=== PATIENT | female | born 1980 | race Caucasian/White ===

== ENCOUNTER → 2019-05-28 | Outpatient (CLI) | payer BC ==
--- NOTE | 2019-05-28 10:02 | XR ---
EXAMINATION TYPE: XR chest 2V DATE OF EXAM: 05/28/2019 COMPARISON: NONE HISTORY: Presurgical study. TECHNIQUE: Frontal and lateral views of the chest are obtained. FINDINGS: There is no focal air space opacity, pleural effusion, or pneumothorax seen. The cardiac silhouette size is within normal limits. The osseous structures are intact. IMPRESSION: No acute cardiopulmonary process.
[2019-05-28 10:50] LABS: Calcium 10.2 mg/dL (8.4-10.2); Potassium 4.3 mmol/L (3.5-5.1)
[2019-05-28 10:54] LABS: Appearance,Urine Clear (Clear); Basophils % (A) 1 %; Bilirubin,Urine Negative (Negative); Blood,Urine Negative (Negative); Color,Urine Light Yellow; Eosinophils # (A) 0.2 k/uL (0-0.7); Eosinophils % (A) 3 %; Glucose,Urine (UA) Negative (Negative); HCT 38.4 % (34.0-46.0); HGB 12.7 gm/dL (11.4-16.0); Ketones,Urine Negative (Negative); Leukocyte Esterase,Urine Large (Negative); Lymphocytes # (A) 1.4 k/uL (1.0-4.8); Lymphocytes % (A) 25 %; MCH 28.8 pg (25.0-35.0); MCV 87.2 fL (80.0-100.0); Mean Platelet Volume 7.2; Monocytes # (A) 0.2 k/uL (0-1.0); Monocytes % (A) 4 %; Mucus,Urine Rare /hpf; Neutrophils # (A) 3.6 k/uL (1.3-7.7); Neutrophils % (A) 65 %; Nitrite,Urine Negative (Negative); Platelet Count 353 k/uL (150-450); Protein,Urine Negative (Negative); RBC 4.41 m/uL (3.80-5.40); RBC,Urine 3 /hpf (0-5); RDW 15.3 % (11.5-15.5); Squamous Epithelial Cell,Urine 1 /hpf (0-4); Urobilinogen,Urine <2.0 mg/dL (<2.0); WBC 5.5 k/uL (3.8-10.6); WBC,Urine 13 /hpf (0-5)
[2019-05-28 11:11] LABS: Partial Thromboplastin Time 28.4 sec (22.0-30.0); Prothrombin Time 10.3 sec (9.0-12.0)
== END | disposition home or self-care (01) ==
LOC: LABWHC1 09:01
PROVIDERS: ATTEND Orthopaedic Surgery Orthopaedic Surgery of the Spine
DX: Z01.818 Encounter for other preprocedural examination (principal); Z01.812 Encounter for preprocedural laboratory examination; M51.26 Other intervertebral disc displacement, lumbar region
CPT/HCPCS: 36415; 71046; 80048; 81001; 85025; 85610; 85730

== ENCOUNTER 2019-06-06 07:02 | Day surgery (SDC) | payer BC ==
[2019-05-30 11:39] VITALS: BMI 38.2
[~2019-06-06 07:02] MED LIST: BACITRACIN 50,000 UNIT, POLYMYXIN B 500,000 UNIT in SODIUM CHLORIDE 0.9% IRRIGATIO 1,00... IRRIGATION ONE; DEXAMETHASONE SOD PHOSPHATE 10 MG/ML 1 ML VIAL IV ONE; HYDROmorphone 0.5 MG/0.5 ML SYRINGE IVP PRN; LACTATED RINGERS 1,000 ML IV SCH; ONDANSETRON 4 MG/2 ML VIAL IVP ONE; ONDANSETRON 4 MG/2 ML VIAL IVP PRN
[2019-06-06] MEDS ORDERED: LIDOCAINE 1% 20 ML VIAL (10MG/ML) FOR IV START INTRADERMA ONE (07:32)
[2019-06-06] MEDS ORDERED: SCOPOLAMINE 1.5MG/72HR PATCH TRANSDERM ONE (07:38)
[2019-06-06] MEDS ORDERED: GLYCOPYRROLATE 0.2 MG/ML 2 ML VIAL ONE (07:47)
[2019-06-06] MEDS ORDERED: ePHEDrine SULFATE/0.9% NACL/PF 50 MG/5 ML SYRINGE IV ONE (07:47)
[2019-06-06] MEDS ORDERED: SUCCINYLCHOLINE CHLORIDE 100 MG/5 ML SYR IV ONE (07:47)
[2019-06-06] MEDS ORDERED: PROPOFOL 10 MG/ML 20 ML VIAL IV ONE (07:47)
[2019-06-06] MEDS ORDERED: fentaNYL (PF) 50 MCG/ML 2 ML AMP ONE (07:47)
[2019-06-06] MEDS ORDERED: MIDAZOLAM 2 MG/2 ML VIAL ONE (07:47)
[2019-06-06] MEDS ORDERED: KETAMINE 10 MG/ML 20 ML VIAL ONE (07:47)
[2019-06-06] MEDS ORDERED: NEOSTIGMINE 1 MG/ML 10 ML VIAL ONE (07:47)
[2019-06-06] MEDS ORDERED: LIDOCAINE 1% INJ 10MG/ML (20 ML MDV) ONE (07:47)
[2019-06-06] MEDS ORDERED: ROCURONIUM BROMIDE 10 MG/ML 10 ML VIAL IV ONE (07:47)
[2019-06-06] MEDS ORDERED: THROMBIN (BOVINE) 5,000 UNIT VIAL TOPICAL ONE (07:54)
[2019-06-06] MEDS ORDERED: GELATIN SPONGE,ABSORB (SMALL) 1 EACH SPONGE TOPICAL ONE (07:54)
[2019-06-06] MEDS ORDERED: GELATIN SPONGE,ABSORB (LARGE) 1 EACH SPONGE TOPICAL ONE (07:54)
[2019-06-06] MEDS ORDERED: LIDOCAINE 0.5%-EPI 1:200,000 50 ML VIAL SQ ONE (08:22)
[2019-06-06] MEDS ORDERED: methylPREDNISolone ACETATE 80 MG/ML 1 ML VIAL INJ ONE ×2 (08:33→08:57)
--- NOTE | 2019-06-06 09:02 | FL ---
Fluoroscopy INDICATION: Pain FINDINGS: Fluoroscopy time: 3 seconds. Images obtained: 1. IMPRESSIONS: 1. Documentation of fluoroscopy.
[2019-06-06] MEDS ORDERED: HYDROmorphone 0.5 MG/0.5 ML SYRINGE IVP PRN (09:22)
[2019-06-06] MEDS ORDERED: IBUPROFEN 600 MG TAB PO PRN (09:22)
[2019-06-06] MEDS ORDERED: KETOROLAC 30 MG/ML 1 ML VIAL IVP PRN (09:22)
[2019-06-06] MEDS ORDERED: HYDROcodone/APAP 5-325MG 1 EACH TAB PO PRN (09:22)
[2019-06-06] MEDS ORDERED: MAGNESIUM HYDROXIDE 2,400 MG/10 ML CUP PO PRN (09:22)
[2019-06-06] MEDS ORDERED: BENZOCAINE/MENTHOL LOZENG 1 EACH LOZENGE MUCOUS MEM PRN (09:22)
[2019-06-06] MEDS ORDERED: ONDANSETRON 4 MG/2 ML VIAL IVP PRN (09:22)
--- NOTE | 2019-06-06 09:27 | P.OP ---
Date of Procedure: 06/06/19 Preoperative Diagnosis: Herniated nucleus pulposis L4 5, right lower extremity radiculopathy Postoperative Diagnosis: Herniated nucleus pulposis L4 5, right lower extremity radiculopathy Anesthesia: GETA Pathology: none sent Condition: stable Disposition: PACU Description of Procedure: BRIEF OPERATIVE NOTE Preoperative Diagnosis:Herniated nucleus pulposis L4 5, right lower extremity radiculopathy Postoperative Diagnosis:Herniated nucleus pulposis L4 5, right lower extremity radiculopathy Procedure: Laminectomy and decompression L4 5 Discectomy for decompression L4 5 Use of fluoroscopic guidance Surgeon: Dr. [employer] Technician: Ever COLLINS who is present throughout the entire the case persistence during positioning, dissection, exposure, visualization, and all crucial elements of the case as well as closure. Anesthesia: General anesthesia Estimated blood loss: approximately 50 mL Complications: None apparent Components implanted: none Disposition: To recovery room in good stable condition. OPERATIVE INDICATIONS The patient has been having issues in their lower back and lower extremities. she is having significant pain with burning tingling and numbness down her right lower extremity over an L5 distribution. She is having some weakness with dorsiflexion. She is found have a disc herniation with extruded fragment at L4 5 with which correlated with her back and lower extremity symptoms. The patient has been through conservative treatment. she is not having any benefit despite aggressive conservative care. We discussed various treatment options including surgery, and the patient wishes to proceed with surgery We discussed the risk, patient's alternatives and benefits of surgery including but not limited to, risk of bleeding risk of infection, risk of need for further surgery, risk of decreased, loss of motion, loss of function, nerve damage, paralysis, heart attack, blindness and . OPERATIVE SUMMARY After discussing all the risks, patient alternatives and benefits at length, the patient elected to proceed with surgical intervention, signed informed consent, and presented for their procedure. The patient was seen and examined in the preoperative holding area and the surgical site was marked. The patient was given antibiotics and brought to the operating room. The patient was sedated and intubated by anesthesia in standard fashion. The patient was positioned on to the operating room table in a prone position on the appropriate frame which was well-padded and well molded. We were careful to pad any bony prominences and pressure points. We were careful to maintain the patient's cervical spine and good neutral alignment and position throughout. The patient was prepped and draped in a normal standard fashion. An appropriate timeout and keystone protocol performed. We were able to proceed with the surgery. Fluoroscopy was utilized to establish the appropriate levelAt L4 5 . The local wound area was infiltrated with local anesthetic. An incision was made at the midline longitudinally over the appropriate levelsAt L4 5 . Dissection was taken down subcutaneously to the level of the fascia which was split midline. Dissection was taken over the lamina. Intraoperative fluoroscopy was taken which showed a marker at the appropriate level. With the appropriate level positively confirmed, we were able to proceed with laminectomyAt L4 5 . The wound was copiously irrigated and suctioned dry as had been done periodically throughout the case. I performed a laminectomy with a combination of curettes and a high-speed bur and Kerrison rongeurs. A small medial facetectomy was performed again further access. A partial foraminotomy was also performed. Portions of the ligamentum flavum were taken down to expose the dura and traversing nerve root. I was able to mobilize the traversing nerve root and gain access to the disc space. Note was made of obvious compression from the disc. there was a extruded fragment compressing the traversing nerve root L4 5 area Protecting the soft tissue structures, a small annulotomy was established. I was able to perform discectomy and remove any extruded disc fragments and any loose fragments from within the disc itself. There is some disc desiccation noted. I tried to preserve the disc annulus that appeared stable. There were no further extruded fragments noted. There is no evidence of dural tear or leak. Good hemostasis maintained. The wound was copiously irrigated and suctioned dry. Good decompression and discectomy was noted. there is no evidence of any instability. We were able to proceed with closure. The fascia was closed for a watertight closure. The subcuticular tissue was closed with absorbable suture. The wound was cleaned and dried and dressed with the appropriate dressing. The drapes were broken down. The patient was gently rolled back onto their hospital bed being careful to maintain their cervical spine and good neutral alignment and position. They were woken up by anesthesia, extubated, and brought to the recovery room in good stable condition. The patient will be admitted to the hospital for observation and for appropriate postoperative care, medical management and monitoring. We will continue to follow them closely about the postoperative course.
[2019-06-06] MEDS ORDERED: LACTATED RINGERS 1,000 ML IV ONE ×2 (09:30)
[2019-06-06] MEDS ORDERED: SODIUM CHLORIDE 0.9% 1,000 ML IV SCH (09:30)
[2019-06-06 09:35] VITALS: RESP 16; TEMP 97.1
[2019-06-06 12:03] VITALS: BP 115/69; PULSE 95
== END 2019-06-06 12:51 | disposition home or self-care (01) ==
LOC: OR 07:02
PROVIDERS: ATTEND Orthopaedic Surgery Orthopaedic Surgery of the Spine
DX: M51.16 Intervertebral disc disorders with radiculopathy, lumbar region (principal); M47.26 Other spondylosis with radiculopathy, lumbar region; E66.9 Obesity, unspecified; N39.0 Urinary tract infection, site not specified; F41.9 Anxiety disorder, unspecified; G43.909 Migraine, unspecified, not intractable, without status migrainosus; Z88.2 Allergy status to sulfonamides; Z91.013 Allergy to seafood; Z87.442 Personal history of urinary calculi; Z79.1 Long term (current) use of non-steroidal anti-inflammatories (NSAID); Z79.899 Other long term (current) drug therapy; Z98.49 Cataract extraction status, unspecified eye; Z98.890 Other specified postprocedural states; Z97.5 Presence of (intrauterine) contraceptive device; Z90.89 Acquired absence of other organs; Z86.69 Personal history of other diseases of the nervous system and sense organs; Z82.49 Family history of ischemic heart disease and other diseases of the circulatory system; Z68.33 Body mass index [BMI] 33.0-33.9, adult
CPT/HCPCS: 81025; 63030; J2250; J1040; J2710; J0690; J2405; J2001; J3010; J1885; J0330; J2704; J1170; 86850; 86900; 86901

== ENCOUNTER → 2019-10-15 | Outpatient (CLI) | payer BC ==
--- NOTE | 2019-10-15 16:36 | CT ---
EXAMINATION TYPE: CT brain wo/w con DATE OF EXAM: 10/15/2019 COMPARISON: CT brain 10/11/2013 HISTORY: Migraines. CT DLP: 2149 mGycm Automated Exposure Control for Dose Reduction was Utilized. TECHNIQUE: CT scan of the head is performed with IV contrast.,CT scan of the head is performed withou t and with without and with IV Contrast, patient injected with 100ml mL of Isovue 300. CLINICAL HISTORY: Migraine headaches with aura COMPARISON: None. FINDINGS: Noncontrast images show no acute intracranial hemorrhage or midline shift. The ventricles and sulci are within normal limits in size. Postcontrast images show no suspicious enhancing intrapa renchymal mass. The globes are intact and the visualized sinuses are clear. IMPRESSION: Negative noncontrast and contrast enhanced head CT exam.
== END ==
LOC: RADCTMAIN 15:52
PROVIDERS: ATTEND Family Medicine
DX: G43.009 Migraine without aura, not intractable, without status migrainosus (principal)
CPT/HCPCS: 70470; Q9967

== ENCOUNTER → 2019-11-28 | Outpatient (CLI) | payer BC ==
[2019-11-28 09:09] LABS: VBG PH 7.39 (7.31-7.41)
[2019-11-28 09:21] LABS: Basophils % (A) 1 %; Eosinophils # (A) 0.1 k/uL (0-0.7); Eosinophils % (A) 2 %; HCT 37.8 % (34.0-46.0); HGB 12.3 gm/dL (11.4-16.0); Lymphocytes # (A) 1.4 k/uL (1.0-4.8); Lymphocytes % (A) 28 %; MCHC 32.5 g/dL (31.0-37.0); MCV 86.3 fL (80.0-100.0); Mean Platelet Volume 7.7; Monocytes # (A) 0.3 k/uL (0-1.0); Monocytes % (A) 5 %; Neutrophils # (A) 3.2 k/uL (1.3-7.7); Neutrophils % (A) 63 %; Platelet Count 322 k/uL (150-450); RBC 4.38 m/uL (3.80-5.40); RDW 13.4 % (11.5-15.5); WBC 5.1 k/uL (3.8-10.6)
[2019-11-28 17:00] LABS: African American GFR (CKD) 82.8 (60.0-200.0); Albumin 4.6 g/dL (3.80-4.90); Albumin/Globulin Ratio 1.84 (1.60-3.17); Anion Gap 9.2 mmol/L (4.00-12.00); Calcium 9.9 mg/dL (8.7-10.3); Carbon Dioxide 24.8 mmol/L (21.6-31.8); Globulin 2.5 g/dL (1.6-3.3); Non-African American GFR(CKD) 71.4 (60.0-200.0); Potassium 4.1 mmol/L (3.5-5.5); Total Bilirubin 0.3 mg/dL (0.2-1.2); Total Protein 7.1 g/dL (6.2-8.2)
== END | disposition home or self-care (01) ==
LOC: LABWHC1 08:32
PROVIDERS: ATTEND Physician Assistant
DX: G43.009 Migraine without aura, not intractable, without status migrainosus (principal)
CPT/HCPCS: 36415; 80053; 82803; 85025

== ENCOUNTER → 2020-10-02 | Outpatient (CLI) | payer BC ==
--- NOTE | 2020-10-02 14:26 | MM ---
Reason for exam: screening (asymptomatic). Baseline mammogram. History: Family history of breast cancer in maternal grandmother. Taking hormonal contraceptives beginning at age 25. Physical Findings: Nurse did not find any significant physical abnormalities on exam. MG Screening Mammo w CAD Bilateral CC and MLO view(s) were taken. The breast tissue is heterogeneously dense. This may lower the sensitivity of mammography. There is no discrete abnormality. These results were verbally communicated with the patient and result sheet given to the patient on 10/02/20. ASSESSMENT: Negative, BI-RAD 1 RECOMMENDATION: Routine screening mammogram of both breasts in 1 year. Some consider ultrasound surveillance in dense tissue.
== END | disposition home or self-care (01) ==
LOC: RADMAMWWP 12:54
PROVIDERS: ATTEND Obstetrics & Gynecology
DX: Z12.31 Encounter for screening mammogram for malignant neoplasm of breast (principal)
CPT/HCPCS: 77067

== ENCOUNTER → 2021-11-20 | Outpatient (CLI) | payer BC ==
--- NOTE | 2021-11-20 13:49 | XR ---
EXAMINATION TYPE: XR KUB DATE OF EXAM: 11/20/2021 HISTORY: Pain Comparison: None.Single KUB is submitted for interpretation. Findings: Right renal calculi: Multiple calculi right kidney. Mid pole calculus measuring 1.7 cm. Adjacent 6 mm calculus. Upper pole calculus measuring 5.3 mm and 4.4 mm respectively. A couple of sub-3 mm calculi noted. Right ureteral calculi: None Visualized. Left renal calculi: Multiple left renal calculi seen totaling approximately 16 and July most of which appear to measure less than 3 mm. Left ureteral calculi: None Visualized. Pelvic calcifications: None Visualized. Bowel gas pattern is unremarkable. No free air. No mass effects. IMPRESSION: 1. Bilateral nephrolithiasis as noted above.
== END | disposition home or self-care (01) ==
LOC: RADXRMAIN 13:29
PROVIDERS: ATTEND Urology
DX: N20.0 Calculus of kidney (principal)
CPT/HCPCS: 74018

== ENCOUNTER → 2021-11-20 | Outpatient (CLI) | payer BC ==
--- NOTE | 2021-11-23 11:39 | MM ---
Reason for exam: screening (asymptomatic). Last mammogram was performed 1 year and 2 months ago. History: Family history of breast cancer in maternal grandmother. Taking hormonal contraceptives beginning at age 25. Physical Findings: A clinical breast exam by your physician is recommended on an annual basis and results should be correlated with mammographic findings. MG Screening Mammo w CAD Bilateral CC and MLO view(s) were taken. Prior study comparison: October 02, 2020, bilateral MG screening mammo w CAD. The breast tissue is heterogeneously dense. This may lower the sensitivity of mammography. Asymmetric breast tissue in the right MLO view 4cm from nipple, inferior. ASSESSMENT: Incomplete: need additional imaging evaluation, BI-RAD 0 RECOMMENDATION: Special view mammogram of the right breast. If lesion persists on supplemental views, image directed ultrasound is recommended. [facility] will attempt to contact patient to return for supplemental views and ultrasound if indicated.
== END | disposition home or self-care (01) ==
LOC: RADMAMWWP 13:06
PROVIDERS: ATTEND Obstetrics & Gynecology
DX: Z12.31 Encounter for screening mammogram for malignant neoplasm of breast (principal); Z80.3 Family history of malignant neoplasm of breast
CPT/HCPCS: 77067

== ENCOUNTER → 2021-11-24 | Outpatient (CLI) | payer BC ==
--- NOTE | 2021-11-24 09:24 | CT ---
EXAMINATION TYPE: CT abdomen pelvis wo con DATE OF EXAM: 11/24/2021 COMPARISON: Ultrasound dated 10/05/2021 and x-ray dated 11/20/2021 HISTORY: Hematuria and kidney stones CT DLP: 535.50 mGycm Automated exposure control for dose reduction was used. TECHNIQUE: Helical acquisition of images was performed from the lung bases through the pelvis. FINDINGS: LUNG BASES: No significant abnormality is appreciated. LIVER/GB: No significant abnormality is appreciated. PANCREAS: No significant abnormality is seen. SPLEEN: No significant abnormality is seen. ADRENALS: No significant abnormality is seen. KIDNEYS: Multiple variable sized bilateral nonobstructing renal calculi. The largest is seen at the l ower pole of the right kidney measuring 17 x 17 mm. The second largest right renal calculus is seen a t the upper pole measuring up to 9 mm. The largest left renal stone is seen at the midpole measuring up to 5 mm. Increased density of the renal medulla bilaterally with faint calcifications suggestive o f medullary nephrocalcinosis. Suspected left renal cyst without gross suspicious feature at the midpo le of the left kidney measuring up to 2.2 cm, suboptimally assessed by this nonenhanced CT scan. Foca l cortical defect is seen at the posterior aspect of the right kidney, possibly representing sequela of previous infarct/infection. No hydroureter or hydronephrosis. FREE AIR: No free air is visualized RETROPERITONEAL ADENOPATHY: None visualized REPRODUCTIVE ORGANS: IUCD is seen within the uterus. 3.3 cm right ovarian follicle/cyst, likely repre senting a follicular cyst, which could be normal for the patient's age. No gross uterine or adnexal m ass. URINARY BLADDER: No significant abnormality is seen. PELVIC ADENOPATHY: None visualized. OSSEOUS STRUCTURES: No aggressive bone lesion. BOWEL: No significant abnormality is seen. OTHER: No sizable ascites. Fat-containing umbilical hernia. IMPRESSION: Nonobstructing bilateral renal calculi measuring up to 17 mm at the lower pole of right kidney with s uspected associated medullary nephrocalcinosis as described above. Recommend clinical correlation, ur ology consultation and further workup. No hydroureter or hydronephrosis. No definite radiodense urete marium or urinary bladder calculi. Incidental findings as described above.
== END | disposition home or self-care (01) ==
LOC: RADCTMAIN 07:57
PROVIDERS: ATTEND Urology
DX: R31.1 Benign essential microscopic hematuria (principal); N20.0 Calculus of kidney
CPT/HCPCS: 74176

== ENCOUNTER → 2021-11-25 | Outpatient (CLI) | payer BC ==
--- NOTE | 2021-11-25 08:45 | MM ---
Reason for exam: additional evaluation requested from abnormal screening. Last mammogram was performed less than 1 month ago. History: Family history of breast cancer in maternal grandmother. Taking hormonal contraceptives beginning at age 25. Physical Findings: A clinical breast exam by your physician is recommended on an annual basis and results should be correlated with mammographic findings. MG Work Up Mamm w CAD RT Spot compression XCCL, spot compression MLO, ML, and XCCL view(s) were taken of the right breast. Prior study comparison: November 20, 2021, bilateral MG screening mammo w CAD. October 02, 2020, bilateral MG screening mammo w CAD. The breast tissue is heterogeneously dense. This may lower the sensitivity of mammography. There is no discrete abnormality including area of concern. These results were verbally communicated with the patient and result sheet given to the patient on 11/25/21. ASSESSMENT: Probably benign, BI-RAD 3 RECOMMENDATION: Follow-up diagnostic mammogram of the right breast in 6 months.
== END | disposition home or self-care (01) ==
LOC: RADMAMWWP 07:58
PROVIDERS: ATTEND Obstetrics & Gynecology
DX: R92.8 Other abnormal and inconclusive findings on diagnostic imaging of breast (principal)
CPT/HCPCS: 77065

== ENCOUNTER → 2022-02-10 | Outpatient (CLI) | payer BC ==
[2022-02-11 03:51] LABS: Anion Gap 11.2 mmol/L (10.00-18.00); Carbon Dioxide 25.5 mmol/L (20.0-27.5); Potassium 4.3 mmol/L (3.5-5.5)
== END | disposition home or self-care (01) ==
LOC: LABWHC1 16:19
PROVIDERS: ATTEND Urology
DX: N20.0 Calculus of kidney (principal); R82.991 Hypocitraturia
CPT/HCPCS: 36415; 80051

== ENCOUNTER → 2022-06-02 | Outpatient (CLI) | payer BC ==
--- NOTE | 2022-06-02 08:01 | MM ---
Reason for Exam: Follow-up at short interval from prior study. Last screening mammogram was performed 6 month(s) ago. Patient History: Menarche at age 13. First Full-Term at age 30. Currently using Hormonal Contraceptives, starting at age 25. Maternal grandmother had breast cancer. Last menstrual period: 05/31/2022 Risk Values: Niesha 5 year model risk: 0.6%. NCI Lifetime model risk: 11.1%. Prior Study Comparison: 10/02/2020 Bilateral Screening Mammogram, [facility]. 11/20/2021 Bilateral Screening Mammogram, [facility]. 11/25/2021 Right Diagnostic Mammogram, [facility]. Tissue Density: Right: The breast tissue is heterogeneously dense. This may lower the sensitivity of mammography. Findings: Analyzed By CAD. Asymmetry seen within the right breast on MLO view compresses out. Overall Assessment: Benign, BI-RAD 2 Management: Screening Mammogram of both breasts in 1 year. A clinical breast exam by your physician is recommended on an annual basis and results should be correlated with mammographic findings. This exam should not preclude additional follow-up of suspicious palpable abnormalities. Results were given to the patient verbally at the time of exam. Electronically signed and approved by: Anand Hernandez DO
== END | disposition home or self-care (01) ==
LOC: RADMAMWWP 06:46
PROVIDERS: ATTEND Obstetrics & Gynecology
DX: R92.8 Other abnormal and inconclusive findings on diagnostic imaging of breast (principal)
CPT/HCPCS: 77065

== ENCOUNTER → 2022-12-02 | Outpatient (CLI) | payer BC ==
--- NOTE | 2022-12-02 11:50 | XR ---
EXAMINATION TYPE: XR KUB DATE OF EXAM: 12/02/2022 10:28 AM INDICATION: Patient age:Female; 42 years old; Reason for study: N20.0; COMPARISON: 11/20/2021, 11/24/2021 CT TECHNIQUE: One radiographic view of the abdomen was obtained. FINDINGS: Multiple bilateral calcific densities are present. Measuring up to 2.3 x 1.6 cm on the righ t and 7 cm on the left. Additional smaller calculi are seen bilaterally. The bowel gas pattern is nonspecific without dilated loops of small or large bowel. There is no evide nce for organomegaly or pneumoperitoneum. The osseous structures are intact. Fecal material and gas are demonstrated throughout the colon and rectum. IUD projects over this sacrum. IMPRESSION: Bilateral renal calculi. IUD projecting over the sacrum.
== END | disposition home or self-care (01) ==
LOC: RADXRMAIN 09:45
PROVIDERS: ATTEND Urology
DX: N20.0 Calculus of kidney (principal)
CPT/HCPCS: 74018

== ENCOUNTER → 2022-12-03 | Outpatient (CLI) | payer BC ==
--- NOTE | 2022-12-06 18:57 | MM ---
Reason for Exam: Screening (asymptomatic). Last screening mammogram was performed 12 month(s) ago. Patient History: Menarche at age 13. First Full-Term at age 30. Patient has history of breast feeding. Currently using Hormonal Contraceptives, starting at age 25. Maternal grandmother had breast cancer. Risk Values: Niesha 5 year model risk: 0.7%. NCI Lifetime model risk: 11.0%. Prior Study Comparison: 11/20/2021 Bilateral Screening Mammogram, [facility]. 11/25/2021 Right Diagnostic Mammogram, [facility]. 06/02/2022 Right MG diagnostic mammo RT w CAD, [facility]. Tissue Density: The breast tissue is heterogeneously dense. This may lower the sensitivity of mammography. Findings: Analyzed By CAD. There is no suspicious group of microcalcifications or new suspicious mass in either breast. Overall Assessment: Negative, BI-RAD 1 Management: Screening Mammogram of both breasts in 1 year. 1. Patient should continue monthly self breast exams. 2. A clinical breast exam by your physician is recommended on an annual basis. 3. This exam should not preclude additional follow-up of suspicious palpable abnormalities. Electronically signed and approved by: Steve Hua M.D. Radiologist
== END | disposition home or self-care (01) ==
LOC: RADMAMWWP 16:04
PROVIDERS: ATTEND Obstetrics & Gynecology
DX: Z12.31 Encounter for screening mammogram for malignant neoplasm of breast (principal); Z80.3 Family history of malignant neoplasm of breast
CPT/HCPCS: 77063; 77067

== ENCOUNTER → 2023-02-16 | Outpatient (CLI) | payer BC ==
--- NOTE | 2023-02-16 15:23 | USB ---
Reason for Exam: Clinical finding. Patient History: Menarche at age 13. First Full-Term at age 30. Patient has history of breast feeding. Currently using Hormonal Contraceptives, starting at age 25. Maternal grandmother had breast cancer. Risk Values: Niesha 5 year model risk: 0.7%. NCI Lifetime model risk: 11.0%. Technique: Method: Targeted. Prior Study Comparison: 11/25/2021 Right Diagnostic Mammogram, [facility]. 06/02/2022 Right MG diagnostic mammo RT w CAD, [facility]. 12/03/2022 Bilateral MG 3D screening mammo w/cad, [facility]. Findings: The area of palpable concern of the right breast, the axilla of the right breast and the retroareolar of the right breast were scanned. Targeted ultrasound of the palpable 11:00 site including scanning of the subareolar region and axilla. At the 11:00 position, 3 cm from the nipple, corresponding to the palpable site, there is a tiny 5 x 3 x 1 mm to small to characterize lesion with a tract extending into the skin layer. No other solid or cystic lesion. Overall Assessment: Benign, BI-RAD 2 Management: Screening Mammogram of both breasts in 10 months. Additional clinical management of the patient's right breast palpable site which seems to correspond to a 5 mm sebaceous cyst versus epidermal inclusion cyst. If it enlarges or remains symptomatic, consider dermatology evaluation. Patient should continue self breast exams. Results were given to the patient verbally at the time of exam. Electronically signed and approved by: Steve Hua M.D. Radiologist
== END | disposition home or self-care (01) ==
LOC: RADUSWWP 14:40
PROVIDERS: ATTEND Obstetrics & Gynecology
DX: N63.10 Unspecified lump in the right breast, unspecified quadrant (principal); Z80.3 Family history of malignant neoplasm of breast

== ENCOUNTER → 2024-01-12 | Outpatient (CLI) | payer BC ==
--- NOTE | 2024-01-16 09:21 | MM ---
Reason for Exam: Screening (asymptomatic). Last mammogram was performed 1 year(s) and 1 month(s) ago. Patient History: Menarche at age 13. First Full-Term at age 30. Patient has history of breast feeding. Currently using Hormonal Contraceptives, starting at age 25. Maternal grandmother had breast cancer. Risk Values: Niesha 5 year model risk: 0.7%. NCI Lifetime model risk: 10.9%. Prior Study Comparison: 11/25/2021 Right Diagnostic Mammogram, [facility]. 06/02/2022 Right MG diagnostic mammo RT w CAD, [facility]. 12/03/2022 Bilateral MG 3D screening mammo w/cad, [facility]. Tissue Density: The breasts are heterogeneously dense, which may obscure small masses. Findings: Analyzed By CAD. There is a loosely grouped calcifications in the central margin of the right breast. Recommend magnification views. Nodular density along the lateral margin of the left breast. Recommend spot compression. Overall Assessment: Incomplete: need additional imaging evaluation, BI-RAD 0 Management: Diagnostic Mammogram of both breasts. . Patient should continue monthly self-breast exams. A clinical breast exam by your physician is recommended on an annual basis. This exam should not preclude additional follow-up of suspicious palpable abnormalities. Note on Niesha scores and lifetime risk: 1. A Niesha score greater than 3% is considered moderate risk. If this is the case, consider specialist referral to assess eligibility for a risk reducing agent. 2. If overall lifetime risk for the development of breast cancer is 20% or higher, the patient may qualify for future screening with alternating mammogram and breast MRI. Electronically signed and approved by: Mehdi Moreno M.D. Radiologis
== END | disposition home or self-care (01) ==
LOC: RADMAMWWP 08:02
PROVIDERS: ATTEND Obstetrics & Gynecology
DX: Z12.31 Encounter for screening mammogram for malignant neoplasm of breast (principal); Z80.3 Family history of malignant neoplasm of breast
CPT/HCPCS: 77063; 77067

== ENCOUNTER → 2024-01-17 | Outpatient (CLI) | payer BC ==
--- NOTE | 2024-01-17 09:34 | MM ---
Reason for Exam: Follow-up at short interval from prior study. Last screening mammogram was performed less than 1 month ago. Patient History: Menarche at age 13. First Full-Term at age 30. Patient has history of breast feeding. Currently using Hormonal Contraceptives, starting at age 25. Maternal grandmother had breast cancer. Risk Values: Niesha 5 year model risk: 0.7%. NCI Lifetime model risk: 10.9%. Prior Study Comparison: 12/03/2022 Bilateral MG 3D screening mammo w/cad, [facility]. 01/12/2024 Bilateral MG 3D screening mammo w/cad, [facility]. Tissue Density: The breasts are heterogeneously dense, which may obscure small masses. Findings: Analyzed By CAD. There is dense parenchymal tissue covering two thirds of the breast. Right breast: There are 5 punctate calcifications somewhat linear arranged in the subareolar right breast on the craniocaudal magnification view. These may be partially visualized on the medial lateral view but not well visualized on the magnification medial lateral view. Stereotactic core biopsy is recommended. Left breast: Noncompression a persistent suspicious density is not identified. There is a suggestion of an anterior upper nodule on the medial lateral view not identified on previous mediolateral oblique view. Ultrasound is recommended. Overall Assessment: Incomplete: need additional imaging evaluation, BI-RAD 0 Management: Diagnostic Breast Ultrasound of the left breast. Surgical Consultation of the right breast. A negative mammogram report should not preclude additional follow up of suspicious palpable abnormalities. Patient should continue monthly self breast exam. A clinical breast exam by your physician is recommended on an annual basis and results should be correlated with mammographic findings. Note on Niesha scores and lifetime risk: 1. A Niesha score greater than 3% is considered moderate risk. If this is the case, consider specialist referral to assess eligibility for a risk reducing agent. 2. If overall lifetime risk for the development of breast cancer is 20% or higher, the patient may qualify for future screening with alternating mammogram and breast MRI. Electronically signed and approved by: Edmundo Lambert D.O. Radiologis
--- NOTE | 2024-01-17 10:53 | USB ---
Reason for Exam: Additional evaluation requested from abnormal screening. Patient History: Menarche at age 13. First Full-Term at age 30. Patient has history of breast feeding. Currently using Hormonal Contraceptives, starting at age 25. Maternal grandmother had breast cancer. Risk Values: Niesha 5 year model risk: 0.7%. NCI Lifetime model risk: 10.9%. Technique: Method: Targeted. Doppler: Color. Patient Position: Supine. Prior Study Comparison: 06/02/2022 Right MG diagnostic mammo RT w CAD, [facility]. 12/03/2022 Bilateral MG 3D screening mammo w/cad, [facility]. 01/12/2024 Bilateral MG 3D screening mammo w/cad, [facility]. Findings: The upper outer quadrant of the left breast, the axilla of the left breast and the retroareolar of the left breast were scanned. There appears to be a cystic cluster measuring 1.1 x 0.5 cm 3 cm from the nipple 3:00 position left breast. May correlate with mammographic findings given the patient flattens out on ultrasound. Precautionary 6 month follow-up mammogram and ultrasound is recommended.. Overall Assessment: Probably benign, BI-RAD 3 Management: Diagnostic Mammogram of the left breast in 6 months. Diagnostic Breast Ultrasound of the left breast in 6 months. A clinical breast exam by your physician is recommended on an annual basis and results should be correlated with mammographic findings. This exam should not preclude additional follow-up of suspicious palpable abnormalities. Results were given to the patient verbally at the time of exam. Electronically signed and approved by: Edmundo Lambert D.O. Radiologis
== END | disposition home or self-care (01) ==
LOC: RADMAMWWP 08:27
PROVIDERS: ATTEND Obstetrics & Gynecology
DX: R92.333 Mammographic heterogeneous density, bilateral breasts (principal); Z80.3 Family history of malignant neoplasm of breast
CPT/HCPCS: 77062; 77066

== ENCOUNTER → 2024-01-26 | Day surgery (SDC) | payer BC ==
[~2024-01-26] MED LIST changes: +ALPRAZolam 0.25 MG TAB PO PRN; -BACITRACIN 50,000 UNIT, POLYMYXIN B 500,000 UNIT in SODIUM CHLORIDE 0.9% IRRIGATIO 1,00... IRRIGATION ONE; -DEXAMETHASONE SOD PHOSPHATE 10 MG/ML 1 ML VIAL IV ONE; -HYDROmorphone 0.5 MG/0.5 ML SYRINGE IVP PRN; -LACTATED RINGERS 1,000 ML IV SCH; -ONDANSETRON 4 MG/2 ML VIAL IVP ONE; -ONDANSETRON 4 MG/2 ML VIAL IVP PRN
[2024-01-26] MEDS: ALPRAZolam 0.5 MG TAB PO PRN (07:48)
--- NOTE | 2024-01-26 09:25 | P.PCN ---
Date of Procedure: 01/26/24 Preoperative Diagnosis: Microcalcifications of concern right breast periareolar region Postoperative Diagnosis: Same Procedure(s) Performed: Right breast stereotactic core biopsy Anesthesia: local Surgeon: Charline Salomon Pathology: other (Breast tissue radiograph reveals microcalcifications of concern) Condition: stable Disposition: same day Indications for Procedure: Microcalcifications of concern right breast Operative Findings: Radiograph of specimen reveals calcifications in area of concern Description of Procedure: Following informed consent and discussion of the risk and benefits of the procedure the patient wished to proceed with a right breast stereotactic core biopsy. The patient was taken to the stereotactic core biopsy room. The lesion could not be well localized in the upright position and therefore she was placed in a left lateral recumbent position with a CC from below approached. A medical lab tech instructor film was obtained. The lesion of concern was identified. The lesion was targeted. The breast was prepped using chlorhexidine. 20 cc of 1% lidocaine were used to anesthetize the area of concern. A 9 gauge vacuum-assisted core rotating petite biopsy needle was driven to the correct coordinates. A prefire film was obtained. The needle was noted to be in the correct location. The needle was fired. The needle was noted to be in the correct location. 24 core biopsy specimens were obtained. Radiograph of the specimen revealed the microcalcifications of concern had been removed. A TriMark biopsy clip was deployed. Radiograph revealed the clip to be in the correct location. The patient tolerated the procedure in stable condition. The patient will follow-up with Dr. Uriostegui next week. The specimen was sent to pathology.
[2024-01-26 09:54] VITALS: BP 120/76; PULSE 57; RESP 14; TEMP 98.3
--- NOTE | 2024-01-27 13:31 | MM ---
Date of Procedure: 01/26/24 Preoperative Diagnosis: Microcalcifications of concern right breast periareolar region Postoperative Diagnosis: Same Procedure(s) Performed: Right breast stereotactic core biopsy Anesthesia: local Surgeon: Charline Salomon Pathology: other (Breast tissue radiograph reveals microcalcifications of concern) Condition: stable Disposition: same day Indications for Procedure: Microcalcifications of concern right breast Operative Findings: Radiograph of specimen reveals calcifications in area of concern Description of Procedure: Following informed consent and discussion of the risk and benefits of the procedure the patient wished to proceed with a right breast stereotactic core biopsy. The patient was taken to the stereotactic core biopsy room. The lesion could not be well localized in the upright position and therefore she was placed in a left lateral recumbent position with a CC from below approached. A wood heel flap rubber film was obtained. The lesion of concern was identified. The lesion was targeted. The breast was prepped using chlorhexidine. 20 cc of 1% lidocaine were used to anesthetize the area of concern. A 9 gauge vacuum-assisted core rotating petite biopsy needle was driven to the correct coordinates. A prefire film was obtained. The needle was noted to be in the correct location. The needle was fired. The needle was noted to be in the correct location. 24 core biopsy specimens were obtained. Radiograph of the specimen revealed the microcalcifications of concern had been removed. A TriMark biopsy clip was deployed. Radiograph revealed the clip to be in the correct location. The patient tolerated the procedure in stable condition. The patient will follow-up with Dr. Uriostegui next week. The specimen was sent to pathology. [facility]PITALStephanie
== END ==
LOC: RADMAMWWP 07:04
PROVIDERS: ATTEND Surgery
DX: R92.1 Mammographic calcification found on diagnostic imaging of breast (principal)
CPT/HCPCS: 88305; 19081; A4648; J2001

== ENCOUNTER → 2024-01-26 | Outpatient (CLI) | payer BC ==
--- NOTE | 2024-01-26 08:07 | P.GSCN ---
History of Present Illness Consult date: 01/26/24 Reason for Consult: Abnormal right breast mammogram Requesting physician: Cuca Johnson History of present illness: Bibi is a 43-year-old female seen in consultation for Dr. Johnson regarding an abnormal right breast mammogram. She underwent a bilateral mammogram on 01-12-2024. This revealed the breast to be heterogeneously dense with some loosely grouped calcifications in the central margin of the right breast. Magnification views were recommended. Nodular density along the lateral margin of the left breast with recommended spot compression views. Diagnostic mammogram of both breast recommended. The patient on 01-17-2024 underwent a bilateral diagnostic mammogram. This revealed in the left breast a persistent suspicious density was not identified. There was suggestion of an anterior upper nodule on the mediolateral view. In the right breast there were 5 punctate calcifications somewhat linear in the subareolar region. Stereotactic core biopsy was recommended. Diagnostic ultrasound of the left breast was recommended. Left breast ultrasound was performed on the same date. This revealed a cystic cluster measuring 1.1 x 0.5 cm in the left breast. Precautionary 6-month follow-up mammogram and ultrasound of the left was recommended. Her mammogram was personally reviewed with Dr. Hua from radiology. The patient does not feel any lumps masses or nodules of concern in either breast. She has never had any surgery on her breast. She has not had any recent trauma or infection in her breast. She is not complaining of any breast pain or nipple discharge. Caffeine: 20 oz coffee/day, pop daily nicotine: none chocolate:occasional BCP: used for about 6 years, now has a mirena IUD she has had that for 10 years; changed every 7 years just changed 1 week ago hormones: only from IUD Family History: great grandmother maternal: breast cancer Hormonal History: menarche: 15 [id number] breast fed: yes, age at first : 30 periods slight spotting with IUD; spotting regular Surgical History: laminectomy discetommy C4/5 kidney stones Diastases rectus repair with a tummy tuck glaucoma repair Medical History: none Social History: nicotine: none alcohol: noen drugs: none Review of Systems - Constitutional Reports sweats - EENT Eyes: denies blurred vision Ears: deny: decreased hearing, tinnitus Ears, nose, mouth and throat: Reports headache - Breasts bilateral: as per HPI - Cardiovascular Denies chest pain, Denies shortness of breath - Respiratory Denies cough, Denies 7 - Gastrointestinal Reports as per HPI - Genitourinary Genitourinary: Reports as per HPI, Reports hematuria, Denies dysuria Menstruation: Reports as per HPI - Musculoskeletal Reports as per HPI - Integumentary Denies rash, Denies unusual bruising - Neurological Denies headaches, Denies syncope - Psychiatric Reports anxiety - Endocrine Reports as per HPI - Allergic/Immunologic Reports as per HPI Past Medical History Additional Past Medical History / Comment(s): MIGRANES. Hx kidney stones History of Any Multi-Drug Resistant Organisms: None Reported Past Surgical History: Back Surgery, Section Additional Past Surgical History / Comment(s): Kidney stone removal, lithotripsy. Lamingectomy L4, 5 2019 Additional Past Anesthesia/Blood Transfusion Reaction / Comm: wake up slowly Past Psychological History: Anxiety Smoking Status: Never smoker Past Alcohol Use History: None Reported Past Drug Use History: None Reported Medications and Allergies Home Medications Medication Instructions Recorded Confirmed Type Cholecalciferol (Vitamin D3) 2,000 unit PO DAILY 05/30/19 01/26/24 History [Vitamin D3] SUMAtriptan succinate [Imitrex] 100 mg PO DAILY PRN 05/30/19 01/26/24 History Escitalopram [Lexapro] 10 mg PO DAILY 01/18/24 01/26/24 History Allergies Allergy/AdvReac Type Severity Reaction Status Date / Time shellfish derived [Shrimp] Allergy Anaphylaxis Verified 01/26/24 07:18 shrimp Allergy Anaphylaxis Verified 01/26/24 07:18 Sulfa (Sulfonamide Allergy Rash/Hives Verified 01/26/24 07:18 Antibiotics) Surgical - Exam - General no distress - Eyes normal ocular movement - ENT no hearing loss - Neck trachea midline - Respiratory normal respiratory effort - Cardiovascular Rhythm: regular Heart Sounds: normal: S1, S2 - Abdomen Abdomen: soft, non tender, no guarding, no rigid, no rebound - Integumentary normal turgor - Musculoskeletal normal gait - Psychiatric oriented to time, oriented to person, oriented to place, speech is normal, memory intact Breast Exam: BRA: 34B Inspection: Bilateral grade 2 ptosis Palpation: Right breast: Multi positional exam fibrocystic changes no dominant masses or nodules of concern Right axilla: No adenopathy of concern Left breast: Multi positional exam fibrocystic changes no dominant masses or nodules of concern Left axilla: No adenopathy of concern Results Mammogram personally reviewed with Dr. uHa from radiology, small area of microcalcification right breast in the periareolar region Assessment and Plan Assessment: Impression: Radiographic abnormality right breast Plan: Right breast stereotactic core biopsy I have discussed the risk and benefits with the patient and her . Risk include but are not limited to bleeding, infection, reaction to the anesthetic. If the area cannot be seen to sample on stereotactic core biopsy after review with radiology it has been determined that we would repeat a right breast mammogram in 6 months with repeat examination at that time. The patient also understands that if the biopsy were discordant then further tissue acquisition may be necessary. They understand and wish to proceed. CC: DR. Johnson, Naila Marte
[2024-01-26 09:06] VITALS: BP 117/74; PULSE 62; RESP 16; TEMP 97.9
== END ==
LOC: WWCWWP 07:02
PROVIDERS: ATTEND Surgery
DX: R92.8 Other abnormal and inconclusive findings on diagnostic imaging of breast (principal); R92.1 Mammographic calcification found on diagnostic imaging of breast; Z80.3 Family history of malignant neoplasm of breast; Z91.013 Allergy to seafood; Z88.2 Allergy status to sulfonamides

== ENCOUNTER → 2024-02-02 | Outpatient (CLI) | payer BC ==
--- NOTE | 2024-02-02 13:09 | P.PN ---
Subjective Progress Note Date: 02/02/24 Principal diagnosis: fibrocystic breast changes Bibi is a 43-year-old female seen in consultation for Dr. Johnson regarding an abnormal right breast mammogram. She underwent a bilateral mammogram on 01-12-2024. This revealed the breast to be heterogeneously dense with some l oosely grouped calcifications in the central margin of the right breast. Magnification views were recommended. Nodular density along the lateral margin of the left breast with recommended spot compression views. Diagnostic mammogram of both breast recommended. The patient on 01-17-2024 underwent a bilateral diagnostic mammogram. This revealed in the left breast a persistent suspicious density was not identified. There was suggestion of an anterior upper nodule on the mediolateral view. In the right breast there were 5 punctate calcifications somewhat linear in the subareolar region. Stereotactic core biopsy was recommended. Diagnostic ultrasound of the left breast was recommended. Left breast ultrasound was performed on the same date. This revealed a cystic cluster measuring 1.1 x 0.5 cm in the left breast. Precautionary 6-month follow-up mammogram and ultrasound of the left was recommended. Her mammogram was personally reviewed with Dr. Hua from radiology. The patient does not feel any lumps masses or nodules of concern in either breast. She has never had any surgery on her breast. She has not had any recent trauma or infection in her breast. She is not complaining of any breast pain or nipple discharge. Bibi on 01-26-24 underwent a right breast stero biopsy. It was benign concordant. She tolerated the procedure without difficulty. Bilateral diagnostic mammogram was on 01-17-2024. This revealed in the left breast a persistent suspicious density was not identified however an ultrasound was performed and a cystic cluster measuring 1.1 x 0.5 cm in the left breast was noted. Precautionary 6-month follow-up mammogram and ultrasound of the left breast was recommended at that time as well as stereotactic core biopsy of the right breast. Niesha Risk: 5-year: 0.7% Lifetime risk: 10.9% Caffeine: 20 oz coffee/day, pop daily nicotine: none chocolate:occasional BCP: used for about 6 years, now has a mirena IUD she has had that for 10 years; changed every 7 years just changed 1 week ago hormones: only from IUD Family History: great grandmother maternal: breast cancer Hormonal History: menarche: 15 [id number] breast fed: yes, age at first : 30 periods slight spotting with IUD; spotting regular Surgical History: laminectomy discetommy C4/5 kidney stones Diastases rectus repair with a tummy tuck glaucoma repair Medical History: none Social History: nicotine: none alcohol: noen drugs: none Objective - Vital Signs Vital signs: Intake & Output 02/01/24 02/02/24 02/02/24 18:59 06:59 18:59 Weight 77.111 kg - Constitutional General appearance: Present: cooperative - EENT ENT: Present: hearing grossly normal - Neck Neck: Present: normal ROM - Respiratory Respiratory: bilateral: CTA - Cardiovascular Heart sounds: normal: S1, S2 - Integumentary Integumentary Comment(s): echymosis at biopsy site right breast no evidence of hematoma or infection Integumentary: Present: normal turgor - Musculoskeletal Musculoskeletal: Present: gait normal - Psychiatric Psychiatric: Present: A&O x's 3, appropriate affect, intact judgment & insight Assessment and Plan Assessment: Stereotactic core biopsy right breast on 01-26-2024 benign concordant Plan: Repeat bilateral mammogram in 6 months left breast ultrasound in 6 months with physician exam at that time Patient to follow-up sooner any questions or concerns. CC: Dr. Anton
[2024-02-02 13:10] VITALS: BP 116/72; PULSE 66; RESP 16; TEMP 98.3
== END ==
LOC: WWCWWP 12:11
PROVIDERS: ATTEND Surgery
DX: R92.1 Mammographic calcification found on diagnostic imaging of breast (principal); R92.8 Other abnormal and inconclusive findings on diagnostic imaging of breast; N60.11 Diffuse cystic mastopathy of right breast; N60.12 Diffuse cystic mastopathy of left breast; R92.323 Mammographic fibroglandular density, bilateral breasts; Z80.3 Family history of malignant neoplasm of breast; Z91.013 Allergy to seafood; Z88.2 Allergy status to sulfonamides

== ENCOUNTER → 2024-07-30 | Outpatient (CLI) | payer BC ==
--- NOTE | 2024-07-30 13:26 | MM ---
Reason for Exam: Follow-up at short interval from prior study. Last screening mammogram was performed 7 month(s) ago. Patient History: Menarche at age 13. First Full-Term at age 30. Patient has history of breast feeding. Currently using Hormonal Contraceptives, starting at age 25. 01/26/2024, Benign MG stereo VAD BX RT on the right side. Maternal grandmother had breast cancer. Last menstrual period: 07/23/2024 Risk Values: Niesha 5 year model risk: 1.2%. NCI Lifetime model risk: 13.2%. Prior Study Comparison: 12/03/2022 Bilateral MG 3D screening mammo w/cad, [facility]. 01/12/2024 Bilateral MG 3D screening mammo w/cad, [facility]. 01/17/2024 Left US breast workup limited LT, [facility]. 01/17/2024 Bilateral MG 3D work up w/cad [facility], [facility]. Tissue Density: The breasts are extremely dense, which lowers the sensitivity of mammography. Findings: Analyzed By CAD. The pattern is symmetrical. Core marker is within the right breast. No suspicious groups of microcalcifications, spiculated or lobular masses, architectural distortion or other secondary signs of malignancy are mammographically apparent. Overall Assessment: Benign, BI-RAD 2 Management: Screening Mammogram of both breasts in 1 year. A negative mammogram report should not preclude additional follow up of suspicious palpable abnormalities. Patient should continue monthly self breast exam. A clinical breast exam by your physician is recommended on an annual basis and results should be correlated with mammographic findings. Note on Niesha scores and lifetime risk: 1. A Niesha score greater than 3% is considered moderate risk. If this is the case, consider specialist referral to assess eligibility for a risk reducing agent. 2. If overall lifetime risk for the development of breast cancer is 20% or higher, the patient may qualify for future screening with alternating mammogram and breast MRI. [facility], , 07/30/2024 1:15 PM. Electronically signed and approved by: Edmundo Lambert D.O. Radiologis
--- NOTE | 2024-07-30 14:04 | USB ---
Reason for Exam: Follow-up at short interval from prior study. Patient History: Menarche at age 13. First Full-Term at age 30. Patient has history of breast feeding. Currently using Hormonal Contraceptives, starting at age 25. 01/26/2024, Benign MG stereo VAD BX RT on the right side. Maternal grandmother had breast cancer. Risk Values: Niesha 5 year model risk: 1.2%. NCI Lifetime model risk: 13.2%. Technique: Method: Targeted. Prior Study Comparison: 12/03/2022 Bilateral MG 3D screening mammo w/cad, [facility]. 01/12/2024 Bilateral MG 3D screening mammo w/cad, [facility]. 01/17/2024 Left US breast workup limited LT, [facility]. 01/17/2024 Bilateral MG 3D work up w/cad [facility], [facility]. Findings: The axilla of the left breast and the retroareolar of the left breast were scanned. At the 3:00 position 3 cm nipple there is persistence of a group of clustered cysts with good through transmission and posterior wall enhancement. This is stable in size measuring 1.1 x 0.5 x 0.7 cm.. Overall Assessment: Benign, BI-RAD 2 Management: Screening Mammogram of both breasts in 6 months. A clinical breast exam by your physician is recommended on an annual basis and results should be correlated with mammographic findings. This exam should not preclude additional follow-up of suspicious palpable abnormalities. Results were given to the patient verbally at the time of exam. [facility], , 07/30/2024 1:38 PM. Electronically signed and approved by: Edmundo Lambert D.O. Radiologis
== END | disposition home or self-care (01) ==
LOC: RADMAMWWP 12:38
PROVIDERS: ATTEND Surgery
DX: R92.8 Other abnormal and inconclusive findings on diagnostic imaging of breast (principal); Z80.3 Family history of malignant neoplasm of breast; R92.343 Mammographic extreme density, bilateral breasts
CPT/HCPCS: 77062; 77066

== ENCOUNTER → 2024-10-02 | Outpatient (CLI) | payer BC ==
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
== END | disposition home or self-care (01) ==
LOC: RADMRIMAIN 16:23
PROVIDERS: ATTEND Family Medicine
DX: M51.17 Intervertebral disc disorders with radiculopathy, lumbosacral region (principal)
CPT/HCPCS: 72148

== ENCOUNTER → 2024-11-29 | Outpatient (CLI) | payer BC ==
--- NOTE | 2024-11-29 12:02 | XR ---
EXAMINATION TYPE: XR KUB DATE OF EXAM: 11/29/2024 11:36 AM COMPARISON: 12/02/2022 CLINICAL INDICATION: Female, 44 years old with history of N20.0 calculus; [facility] TECHNIQUE: One radiographic view of the abdomen was obtained. FINDINGS: The bowel gas pattern is nonspecific without dilated loops of small or large bowel. . Fecal material and gas are demonstrated throughout the colon and rectum. There is no evidence for organome jen or pneumoperitoneum. No acute osseous process. Bilateral renal calculi measuring up to 24 mm o n the right and 7 mm on the left. IUD in place. IMPRESSION: 1. Multiple right-sided renal calculi measuring up to 24 mm. 2. Left-sided renal calculi measuring up to 7 mm. [facility], , 11/29/2024 11:59 AM
== END | disposition home or self-care (01) ==
LOC: RADXRMAIN 11:25
PROVIDERS: ATTEND Urology
DX: N20.0 Calculus of kidney (principal)
CPT/HCPCS: 74018